=== PATIENT | male | born 1995 | race Caucasian/White ===

== ENCOUNTER 2019-05-19 10:06 | Emergency (ER) | payer OTHER ==
[~2019-05-19] VITALS: Ht 182.9 cm; Wt 108.9 kg
== END 2019-05-19 11:35 | disposition home or self-care (01) ==
LOC: ED 10:06
DX: S99.921A Unspecified injury of right foot, initial encounter (principal); W22.8XXA Striking against or struck by other objects, initial encounter; Z91.010 Allergy to peanuts; Z91.018 Allergy to other foods
CPT/HCPCS: 73630; 99283-25